=== PATIENT | male | born 1935 | race Caucasian/White ===

== ENCOUNTER 2017-05-06 01:17 | Emergency (ER) | payer MEDICARE, BC ==
[~2017-05-06] VITALS: Ht 170.2 cm; Wt 67.2 kg
[~2017-05-06 01:17] MED LIST: ANTIVERT25 MG PO; ARTHRITIS PAIN650 MG PO; ASPIRIN LOW DOS81 M1 PO; ASPIRIN LOW81 M1 OR; BACTRIM DS1 TAB OR; BACTRIM DS1 TAB PO; BENADRYL A12.5 MG/1 PO; BENADRYL25 M1 OR; BENTYL10 MG PO; CIPRO250 MG PO; COMPAZINE10 MG OR; CYCLOBENZAPR10 MG PO; DIAZEPAM5 M1 PO; DIAZEPAM5 MG OR; DICLOFENAC75 MG OR; DITROPAN OR; EMETROL PO; FENOFIBRATE48 MG PO; FENTANYL50 MCG/HR TD; FLEXERIL OR; FLEXERIL PO; FLEXERIL5 MG PO; FLOMAX0.4 M1 PO; FLONASE NASAL50 MCG; GABAPENTIN100 MG PO; HYDROCODONE/ACE1 TAB PO; LEVAQUIN500 MG PO; LEVOTHYROXIN50 MC1 OR; LEVOTHYROXIN50 MCG PO; LEXAPRO10 MG PO; LIDOCAINE HCL VIS2 % PO; LIPITOR40 MG PO; LORAZEPAM0.5 MG PO; LORTAB 7.5 PO; LORTAB 7.57.5 MG PO; MAALOX PO; MECLIZINE25 MG PO; METOPROL TAR25 MG OR; METOPROL TAR25 MG PO; MULTIVITAMIN OR; NAPROSYN375 MG PO; NAPROXEN DR375 MG PO; NAPROXEN375 MG PO; NUCYNTA ER50 MG PO; OXYCO/APAP1 TA2 OR; OXYCOD-APAP1 TA1 PO; OXYCOD/APAP1 TA3 PO; OXYCOD/APAP1 TA4 PO; PERCOCET1 TA4 PO; PLAVIX75 MG; PLAVIX75 MG PO; PRAVASTATIN SOD80 MG PO; PRAVASTATIN40 MG OR; PRAVASTATIN80 MG PO; PREDNISOLON2 XX; PREDNISONE5 MG; PREDNISONE5 MG OR; PREDNISONE5 MG PO; PROAIR HFA IN; PROCHLORPER10 MG PO; RANITIDINE150 M1 PO; RANITIDINE150 MG PO; ROBITUSSIN AC10 ML PO; SYMBICORT 80-4.5MCG IN; TAMSULOSIN0.4 MG PO; TERAZOSIN2 MG PO; TRAMADOL HCL50 MG PO; TRICOR48 MG PO; TUMS ULTRA1000 MG PO; TYLENOL 8 HR650 MG OR; TYLENOL325 MG PO; TYLOX OR; ULTRAM50 M1 PO; VALIUM5 MG PO; VENTOLIN HFA IN; VESICARE5 MG OR; VITAMIN B OR; ZANTAC 150 PO; ZOFRAN ODT4 MG SL; ZPAK PO
[2017-05-06] MEDS ORDERED: ULTRAM50 M1 PO (02:58)
[2017-05-06 03:22] VITALS: BP 138/86
== END 2017-05-06 03:21 | disposition home or self-care (01) ==
LOC: ED 01:17
DX: M70.31 Other bursitis of elbow, right elbow (principal); M25.521 Pain in right elbow

== ENCOUNTER 2017-07-01 02:00 | Observation (INO) | payer MEDICARE, BC ==
[~2017-07-01] VITALS: Ht 170.2 cm; Wt 67.2 kg
--- NOTE | 2017-07-01 02:00 | NUR ---
PT. AMBULATORY WITH STEADY GAIT TO TREATMENT ROOM.
--- NOTE | 2017-07-01 02:10 | NUR ---
DR. WHITE AT BEDSIDE TO ASSESS PT.
[2017-07-01] MEDS ORDERED: SYNTHROID25 MCG PO (02:28)
[2017-07-01] MEDS ORDERED: PREDNISONE10 MG PO (02:28)
[2017-07-01] MEDS ORDERED: ZANTAC150 M1 PO (02:29)
[2017-07-01] MEDS ORDERED: DONEPEZIL5 MG PO (02:29)
[2017-07-01] MEDS ORDERED: OXYCODONE/ACETA1 TA4 PO (02:30)
--- NOTE | 2017-07-01 02:35 | NUR ---
W/P/D SKIN PT DENIES SOB,NO NAUSEA NO SWEATS.SR NO ECTOPY S1S2 CLEAR BILAT BREATH SOUNDS.ABD SOFT NON TENDER.
[2017-07-01 02:44] LABS: HEMATOCRIT 37.9 % (39.0-50.0); HEMOGLOBIN 12.2 g/dl (14.0-18.0); IMMATURE GRANULOCYTES 0.3 % (0.0-1.0); MEAN CELL VOLUME 92.4 fL CALC (80.0-100.0); MEAN CORPUSCULAR HGB 29.8 pG CALC (26.0-32.0); MEAN CORPUSCULAR HGB CONC 32.2 g/L CALC (32.0-36.0); NEUT# 4.51 thou/uL (1.82-7.42); RED BLOOD COUNT 4.1 mill/uL (4.70-6.10); RED CELL DISTRI WIDTH 12.9 % (11.5-15.5)
[2017-07-01 02:54] LABS: ALKALINE PHOSPHATASE 60 u/l (38-126); ANION GAP 13 (6-22 (CALC)); BILIRUBIN, TOTAL 0.3 mg/dL (0.0-1.4); BUN 20 mg/dL (8-23); BUN/CREATININE RATIO 19 (12-20 (CALC)); CALCIUM 9.4 mg/dL (8.4-10.2); CARBON DIOXIDE 26 mmol/l (22-30); CHLORIDE 105 mmol/l (95-108); CREATININE 1.1 mg/dL (0.7-1.3); GFR > 60 ML/MIN (>=60 (CALC)); GFR FOR AFR.AMER. > 60 ML/MIN (>=60 (CALC)); GLUCOSE 113 mg/dL (82-115); LIPASE 102 u/l (23-300); POTASSIUM 4.2 mmol/l (3.5-5.1); SGOT/AST 25 u/l (19-48); SGPT/ALT 34 u/l (11-66); SODIUM 139 mmol/l (137-146); TOTAL PROTEIN 6.3 g/dL (6.3-8.2)
--- NOTE | 2017-07-01 02:54 | NUR ---
MEDICATED FOR NAUSEA
[2017-07-01 03:00] LABS: ACT PARTIAL THROMBO TIME 28.8 SECONDS (20.0-32.5); INTERNATIONAL NORMALIZED RATIO 0.9 RATIO (0.7-1.3); PROTHROMBIN TIME 10.1 SECONDS (9.0-12.5)
[2017-07-01 03:05] LABS: MYOGLOBIN 49 ng/mL (0 - 121)
--- NOTE | 2017-07-01 03:27 | NUR ---
PT STANDS TO VOID DENIES PAIN W/P/D SKIN SR WITHOUT ECTOPY
[2017-07-01 03:37] LABS: URINE BILIRUBIN - DIPSTICK NEGATIVE (NEGATIVE); URINE BLOOD DIPSTICK NEGATIVE (NEGATIVE); URINE COLOR YELLOW; URINE GLUCOSE - DIPSTICK NEGATIVE (NEGATIVE); URINE KETONE NEGATIVE (NEGATIVE); URINE LEUK ESTERASE NEGATIVE (NEGATIVE); URINE NITRITE - DIPSTICK NEGATIVE (Negative); URINE PH 6.5 (4.5-8.0); URINE PROTEIN - DIPSTICK NEGATIVE (NEG-TRACE); URINE UROBILINOGEN - DIPSTICK 0.2 E.U./dL (0.2)
[2017-07-01 03:46] LABS: URINE CLARITY CLEAR
--- NOTE | 2017-07-01 03:56 | NUR ---
DR Jack DISCUSSED POC WITH PT WHO ACCEPTS ADMISSION
--- NOTE | 2017-07-01 04:48 | NUR ---
PHONE REPORT TO ROSA ESTES ON MS2
[2017-07-01 04:50] VITALS: BP 164/88
--- NOTE | 2017-07-01 04:50 | NUR ---
FROM ER TO MED/SURG ROOM 271, VIA STRETCHER AND HELIX COIL WINDER, ON 2LPM VIA NC, A/O X3, APPEARS FORGETFULL, (HX OF DEMENTIA), ABLE TO AMBULATE TO STANDING SCALE THEN TO BED, UNSTEADY GAIT NOTED, DENIES ANY CHEST PAIN AT THIS TIME, OR SOB, TELE IN PLACE, JOHN HOSE IN PLACE, STATES LIVES AT ALONE AT HOME, STATES SON DROVE HIM TO EMERGENCY ROOM, REPORTS THAT STILL DRIVES, EXPLAINED CALL BENNETT SYSTEM, VOICES UNDERSTANDING, SAFETY MEASURES IN PLACE, BST, URINAL, AND FRESH WATER WITHIN REACH WELL CALL BENNETT, PT DEMOSTRATED BACK HOW TO USE CALL BENNETT, WILL MONITOR CLOSELY.
--- NOTE | 2017-07-01 05:00 | NUR ---
PT. UP TO MED/SURG AT THIS TIME.
[2017-07-01 06:30] VITALS: BP 145/82
--- NOTE | 2017-07-01 07:16 | NUR ---
NOTIFIED DR. IVY OF NO ORDERS IN PLACE. PT DENIES CHEST PAIN OR SOB, REPORT PROVIDED TO MEERA SOLIZ.
--- NOTE | 2017-07-01 07:24 | NUR ---
SHIFT CHANGE REPORT FROM SAMIA, PT AWAKE ALERT AND ORIENTED X 2, PLEASANTLY CONVERSANT, DENIES PAIN AT THIS TIME, TELE MONITOR IN PLACE, CALL BENNETT IN REACH.
[2017-07-01 07:33] VITALS: BP 145/79
--- NOTE | 2017-07-01 09:37 | NUR ---
ON ROUNDING, PT FOUND WITH IV CATHETER DISLODGED, STATED HE TOOK IT OFF BY HIMSELF AND TOOK OFF HIS MONITOR, GOT DRESSED AND WAITING FOR FAMILY TO TAKE HIM HOME. REORIENTED AND REDIRECTED, WILL CONTINUE TO MONITOR.
[2017-07-01] MEDS ORDERED: NITROGLYCER0.4 MG SL (10:25)
--- NOTE | 2017-07-01 10:47 | NUR ---
Discharge instructions given. Patient verbalizes understanding of same. Discharged in good condition via Ambulatory to Home with family. All belongings sent with pt.
== END 2017-07-01 10:46 | disposition home or self-care (01) ==
LOC: ED 02:00 → ED-I 03:56 → ED 04:11 → MS2 04:12
PROVIDERS: Emergency Medicine; ADMIT Internal Medicine; ATTEND Internal Medicine
DX: R07.9 Chest pain, unspecified (principal); I10 Essential (primary) hypertension; J44.9 Chronic obstructive pulmonary disease, unspecified; G89.4 Chronic pain syndrome; Z79.891 Long term (current) use of opiate analgesic

== ENCOUNTER 2017-09-05 05:53 | Emergency (ER) | payer MEDICARE, BC ==
[~2017-09-05] VITALS: Ht 170.2 cm; Wt 69.2 kg
[~2017-09-05 05:53] MED LIST changes: +DONEPEZIL5 MG PO; +NITROGLYCER0.4 MG SL; +OXYCODONE/ACETA1 TA4 PO; +PREDNISONE10 MG PO; +SYNTHROID25 MCG PO; +ZANTAC150 M1 PO
[2017-09-05 06:39] LABS: HEMATOCRIT 40.3 % (39.0-50.0); IMMATURE GRANULOCYTES 0.2 % (0.0-1.0); MEAN CORPUSCULAR HGB 29.7 pG CALC (26.0-32.0); MEAN CORPUSCULAR HGB CONC 32.3 g/L CALC (32.0-36.0); NEUT# 3.5 thou/uL (1.82-7.42); RED BLOOD COUNT 4.38 mill/uL (4.70-6.10); RED CELL DISTRI WIDTH 13.1 % (11.5-15.5)
[2017-09-05 06:56] LABS: ALKALINE PHOSPHATASE 60 u/l (38-126); ANION GAP 14 (6-22 (CALC)); BILIRUBIN, TOTAL 0.5 mg/dL (0.0-1.4); BUN 19 mg/dL (8-23); BUN/CREATININE RATIO 16 (12-20 (CALC)); CARBON DIOXIDE 29 mmol/l (22-30); CHLORIDE 103 mmol/l (95-108); CREATININE 1.2 mg/dL (0.7-1.3); GFR 58 ML/MIN (>=60 (CALC)); GFR FOR AFR.AMER. > 60 ML/MIN (>=60 (CALC)); SGOT/AST 24 u/l (19-48); SGPT/ALT 23 u/l (11-66); SODIUM 142 mmol/l (137-146); TOTAL PROTEIN 6.2 g/dL (6.3-8.2)
[2017-09-05 07:01] LABS: MYOGLOBIN 49 ng/mL (0 - 121)
[2017-09-05] MEDS ORDERED: LISINOPRIL10 MG PO (07:45)
[2017-09-05 07:47] VITALS: BP 148/81
== END 2017-09-05 08:00 | disposition home or self-care (01) ==
LOC: ED 05:53
PROVIDERS: Emergency Medicine
DX: I10 Essential (primary) hypertension (principal); J44.9 Chronic obstructive pulmonary disease, unspecified; I25.10 Atherosclerotic heart disease of native coronary artery without angina pectoris; R51 Headache

== ENCOUNTER 2017-09-21 11:52 | Emergency (ER) | payer MEDICARE, BC ==
[~2017-09-21] VITALS: Ht 170.2 cm; Wt 65.8 kg
[~2017-09-21 11:52] MED LIST changes: +LISINOPRIL10 MG PO
[2017-09-21 12:37] LABS: HEMATOCRIT 41.5 % (39.0-50.0); HEMOGLOBIN 13.3 g/dl (14.0-18.0); IMMATURE GRANULOCYTES 0.2 % (0.0-1.0); MEAN CORPUSCULAR HGB 29.5 pG CALC (26.0-32.0); NEUT# 6.73 thou/uL (1.82-7.42); RED BLOOD COUNT 4.51 mill/uL (4.70-6.10); RED CELL DISTRI WIDTH 12.9 % (11.5-15.5)
[2017-09-21 12:37] LABS: URINE BILIRUBIN - DIPSTICK NEGATIVE (NEGATIVE); URINE BLOOD DIPSTICK NEGATIVE (NEGATIVE); URINE COLOR YELLOW; URINE GLUCOSE - DIPSTICK NEGATIVE (NEGATIVE); URINE KETONE NEGATIVE (NEGATIVE); URINE LEUK ESTERASE NEGATIVE (NEGATIVE); URINE NITRITE - DIPSTICK NEGATIVE (Negative); URINE PROTEIN - DIPSTICK NEGATIVE (NEG-TRACE); URINE UROBILINOGEN - DIPSTICK 0.2 E.U./dL (0.2)
[2017-09-21 12:49] LABS: URINE CLARITY CLEAR
[2017-09-21 13:02] LABS: ALBUMIN 4.1 g/dL (3.2-5.0); ALKALINE PHOSPHATASE 56 u/l (38-126); ANION GAP 14 (6-22 (CALC)); BILIRUBIN, TOTAL 0.5 mg/dL (0.0-1.4); BUN 23 mg/dL (8-23); BUN/CREATININE RATIO 17 (12-20 (CALC)); CARBON DIOXIDE 26 mmol/l (22-30); CHLORIDE 103 mmol/l (95-108); CREATININE 1.3 mg/dL (0.7-1.3); GFR 53 ML/MIN (>=60 (CALC)); GFR FOR AFR.AMER. > 60 ML/MIN (>=60 (CALC)); LIPASE 97 u/l (23-300); POTASSIUM 4.1 mmol/l (3.5-5.1); SGOT/AST 19 u/l (19-48); SGPT/ALT 21 u/l (11-66); SODIUM 139 mmol/l (137-146); TOTAL PROTEIN 6.4 g/dL (6.3-8.2)
[2017-09-21] MEDS ORDERED: RANITIDINE 150150 MG PO (15:45)
[2017-09-21 15:52] VITALS: BP 128/61
== END 2017-09-21 15:54 | disposition home or self-care (01) ==
LOC: ED 11:52
PROVIDERS: Family Medicine
DX: K29.70 Gastritis, unspecified, without bleeding (principal); K59.00 Constipation, unspecified; R11.0 Nausea; I25.10 Atherosclerotic heart disease of native coronary artery without angina pectoris; Z95.5 Presence of coronary angioplasty implant and graft; I10 Essential (primary) hypertension
CPT/HCPCS: Q9967

== ENCOUNTER 2017-09-23 10:04 | Emergency (ER) | payer MEDICARE, BC ==
[~2017-09-23] VITALS: Ht 170.2 cm; Wt 84.0 kg
[~2017-09-23 10:04] MED LIST changes: +RANITIDINE 150150 MG PO
[2017-09-23 11:09] VITALS: BP 172/80
== END 2017-09-23 11:18 | disposition home or self-care (01) ==
LOC: ED 10:04
DX: K59.00 Constipation, unspecified (principal); R10.13 Epigastric pain; R11.0 Nausea

== ENCOUNTER 2018-04-13 02:44 | Emergency (ER) | payer MEDICARE, BC ==
[~2018-04-13] VITALS: Ht 170.2 cm; Wt 65.4 kg
[2018-04-13 03:55] VITALS: BP 165/96
== END 2018-04-13 03:55 | disposition home or self-care (01) ==
LOC: ED 02:44
DX: S43.402A Unspecified sprain of left shoulder joint, initial encounter (principal); I10 Essential (primary) hypertension; J44.9 Chronic obstructive pulmonary disease, unspecified; I25.10 Atherosclerotic heart disease of native coronary artery without angina pectoris; W01.0XXA Fall on same level from slipping, tripping and stumbling without subsequent striking against object, initial encounter; Y92.009 Unspecified place in unspecified non-institutional (private) residence as the place of occurrence of the external cause

== ENCOUNTER 2018-04-30 15:48 | Observation (INO) | payer MEDICARE, BC ==
[~2018-04-30] VITALS: Ht 170.2 cm; Wt 70.4 kg
--- NOTE | 2018-04-30 15:50 | NUR ---
PATIENT TO ROOM VIA WHEELCHAIR.
--- NOTE | 2018-04-30 16:15 | NUR ---
PATIENT REPORTS INTERMITTENT CHEST PAIN PAIN X1 MONTH INCREASING TODAY. STATES "I GET BURSTS OF PAIN." TO LEFT LOWER CHEST, DENIES ANY CURRENT CHEST PAIN, DENIES ANY SOB OR VOMITING. LUNG SOUNDS CLEAR, BOWEL SOUNDS ACTIVE, SOFT ABD. UPDATED ON PLAN OF CARE AND WAIT TIME. VERBAL UNDERSTANDING. CALL LIGHT GIVEN AND INFORMED TO CALL FOR ASSISTANCE.
[2018-04-30 16:26] LABS: HEMATOCRIT 38.4 % (39.0-50.0); HEMOGLOBIN 12.1 g/dl (14.0-18.0); IMMATURE GRANULOCYTES 0.3 % (0.0-5.0); MEAN CELL VOLUME 94.8 fL CALC (80.0-100.0); MEAN CORPUSCULAR HGB 29.9 pG CALC (26.0-32.0); MEAN CORPUSCULAR HGB CONC 31.5 g/L CALC (32.0-36.0); NEUT# 8.37 thou/uL (1.82-7.42); RED BLOOD COUNT 4.05 mill/uL (4.70-6.10); RED CELL DISTRI WIDTH 13.7 % (11.5-15.5)
[2018-04-30 16:35] LABS: ANION GAP 15 (6-22 (CALC)); BUN 21 mg/dL (8-23); BUN/CREATININE RATIO 17 (12-20 (CALC)); CARBON DIOXIDE 25 mmol/l (22-30); CHLORIDE 106 mmol/l (95-108); CREATININE 1.2 mg/dL (0.7-1.3); GFR 58 ML/MIN (>=60 (CALC)); GFR FOR AFR.AMER. > 60 ML/MIN (>=60 (CALC)); POTASSIUM 4.4 mmol/l (3.5-5.1); SODIUM 141 mmol/l (137-146)
--- NOTE | 2018-04-30 17:05 | NUR ---
PATIENT DENIES ANY CHEST PAIN SINCE ARRIVAL. UPDATED ON PLAN OF CARE AND ADMIT. VERBAL UNDERSTANDING. WILL CONTINUE TO MONITOR.
--- NOTE | 2018-04-30 17:25 | NUR ---
REPORT CALLED TO MEERA SOLIZ.
--- NOTE | 2018-04-30 17:30 | NUR ---
PATIENT TRANSPORTED TO [facility] VIA WHEELCHAIR WITH TELE IN PLACE. AT BEDSIDE. MARTÍNEZ INFORMED OF PATIENT ARRIVAL TO UNIT CARE RELINQUISHED.
--- NOTE | 2018-04-30 17:42 | NUR ---
REPORT RECEIVED FROM PATTI IN ED, PT ARRIVED ON UNIT VIA W/C @ 1647, ALERT AND ORIENTED X 4, ORIENTED TO ROOM AND CALL BENNETT. DENIED PAIN AT THIS TIME BUT STATED HAS BEEN HAVING INTERMITTENT SHARP PAINS TO LEFT BREAST WHICH STAYED IN ONE PLACE, LAST FOR FEW SECONDS-FEW MINS THEN DISAPPEAR. DR GARCIA ROUNDING AT THIS TIME AND EVALUATING PT, WILL CONTINUE TO MONITOR, CALL BENNETT IN REACH.
[2018-04-30 17:46] VITALS: BP 126/73
[2018-04-30 18:57] VITALS: BP 136/76
--- NOTE | 2018-04-30 19:00 | NUR ---
PT SITTING UP IN BED WATCHING TV. PT IS ALERT AND ORIENTED X3. SHIFT ASSESSMENT COMPLETED AT THIS TIME. IV PATENT X1. PT STATES THAT HE IS STILL HAVING SOME PAIN BUT HAS NORMALLY HAD PAIN MEDS BY THIS TIME. PREVIOUS SHIFT NURSE HAS A MESSAGE OUT TO MD. AWAITING MD ORDERS. PLAN OF CARE REVIEWED WITH PT. PT IS ON A BED ALARM FOR PT SAFETY. ASSISTED PT TO BATHROOM AND BACK TO BED. PT HAS A STEADY GAIT. CALL LIGHT IN REACH. WILL CONTINUE TO MONITOR.
--- NOTE | 2018-04-30 19:45 | NUR ---
IV SITE TO RAC DC'D DUE TO PT BENDING ARM. #22 STARTED TO RFA X1 ATTEMPT PT TOLERATED WELL.
--- NOTE | 2018-04-30 23:32 | NUR ---
PT UP AMBULAITNG IN ROOM. PT REMOVED BED ALARM FROM GOWN. INSTRUCTED PT TO CALL FOR ASSISTANCE. PT REMAINS ALERT AND ORIENTED X3. WILL CONTINUE TO MONITOR
[2018-05-01 00:06] VITALS: BP 147/81
--- NOTE | 2018-05-01 02:17 | NUR ---
IV PUMP BEEPING THAT INFUSION COMPLETE. PT REMOVED IV FROM RFA AND HUNG IV AND TUBING ON POLE. PT REFUSING AT THIS TIME FOR A NEW IV STATING "I AM LEAVING IN A FEW HOURS". CATH TIP INTACT. WILL CONTINUE TO MONITOR.
[2018-05-01 03:11] VITALS: BP 137/79
--- NOTE | 2018-05-01 03:32 | NUR ---
PT CONTINUES TO REFUSE IV. QUESTIONED PT ON PLACING NEW LEADS FOR HEART MONITOR. PT DECLINED. REMOVED TELE BOX AND NOTIFIED ER. CALL LIGHT IN REACH. WILL CONTINUE TO MONITOR.
--- NOTE | 2018-05-01 04:00 | NUR ---
PT AMBULATING IN HALLWAYS. PHONED SON. SON TALKED TO PATIENT AND ENCOURAGED PT TO STAY. PT STATED TO SON THAT HE WOULD STAY. AFTER HANGING UP PHONE WITH SON. PT LEFT VIA [facility] IN [address]. SECURITY MYSELF AND NURSING CANE FLUME FEEDING MACHINE OPERATOR FOLLOWED PATIENT TO PARKING LOT. PT GOT IN CAR AND DROVE OFF. [place] NURSING CANE FLUME FEEDING MACHINE OPERATOR NOTIFIED POLICE. MYSELF NOTIFIED SON NAHOMI. SON WENT TO PT HOME AND POLICE NOTIFIED REN[place] NURSIGN CANE FLUME FEEDING MACHINE OPERATOR THAT PT HAD ARRIVED HOME SAFELY. AMA PAPERWORK COMPLETED. DR VICK NOTIFIED IN ER COURT BAILIFF HOSPITALIST. DR GARCIA NOTIFIED WELL.
== END 2018-05-01 04:00 | disposition left against medical advice (07) ==
LOC: ED 15:48 → ED-I 16:51 → ED 17:03 → MS2 17:04
PROVIDERS: Family Medicine; ADMIT Internal Medicine; ATTEND Internal Medicine
DX: R07.89 Other chest pain (principal); I10 Essential (primary) hypertension; J44.9 Chronic obstructive pulmonary disease, unspecified; I25.10 Atherosclerotic heart disease of native coronary artery without angina pectoris; M19.90 Unspecified osteoarthritis, unspecified site; E03.9 Hypothyroidism, unspecified; F03.90 Unspecified dementia, unspecified severity, without behavioral disturbance, psychotic disturbance, mood disturbance, and anxiety
CPT/HCPCS: G0378

== ENCOUNTER 2018-06-10 08:55 | Emergency (ER) | payer MEDICARE, BC | END 2018-06-10 09:05 | disposition left against medical advice (07) | LOC: ED 08:55 → LWOBS 09:04 | DX: Z91.19 Patient's noncompliance with other medical treatment and regimen (principal) ==

== ENCOUNTER 2019-11-20 | Inpatient (IN) | payer MEDICARE, BC ==
[2019-11-20] VITALS (7 sets, daily range): BP systolic 105–147; BP diastolic 59–74
--- NOTE | 2019-11-20 11:40 | NUR ---
PATIENT TO ROOM VIA EMS AND PHYSICIAN AT BEDSIDE FOR EVAL
--- NOTE | 2019-11-20 12:00 | NUR ---
PT MEDICATED PER MAR FOR TEMP; MONITORING DEVICES IN PLACE; VSS; WILL CONTINUE TO MONITOR
[2019-11-20 12:34] LABS: HEMOGLOBIN 11.3 g/dl (14.0-18.0); IMMATURE GRANULOCYTES 0.4 % (0.0-5.0); MEAN CELL VOLUME 90.8 fL CALC (80.0-100.0); MEAN CORPUSCULAR HGB 29.6 pG CALC (26.0-32.0); MEAN CORPUSCULAR HGB CONC 32.6 g/dL CAL (32.0-36.0); NEUT# 8.99 thou/uL (1.82-7.42); RED BLOOD COUNT 3.82 mill/uL (4.70-6.10); RED CELL DISTRI WIDTH 12.6 % (11.5-15.5)
[2019-11-20 12:39] LABS: HEMATOCRIT 34.7 % (39.0-50.0)
[2019-11-20 12:50] LABS: ACT PARTIAL THROMBO TIME 23.6 SECONDS (20.0-32.5); PROTHROMBIN TIME 10.6 SECONDS (9.0-12.5)
[2019-11-20 12:53] LABS: ALBUMIN 3.4 g/dL (3.2-5.0); ALKALINE PHOSPHATASE 56 u/l (38-126); AMYLASE 33 u/l (30-110); ANION GAP 8 (6-22 (CALC)); BILIRUBIN, TOTAL 1.1 mg/dL (0.0-1.4); BUN 16 mg/dL (8-23); BUN/CREATININE RATIO 16 (12-20 (CALC)); CARBON DIOXIDE 27 mmol/l (22-30); CHLORIDE 105 mmol/l (95-108); ETHYL ALCOHOL 0 mg/dl (0-30); GFR > 60 ML/MIN (>=60 (CALC)); GFR FOR AFR.AMER. > 60 ML/MIN (>=60 (CALC)); LIPASE 26 u/l (23-300); MAGNESIUM 1.8 mg/dL (1.6-2.3); POTASSIUM 3.8 mmol/l (3.5-5.1); SGOT/AST 26 u/l (19-48); SODIUM 136 mmol/l (137-146)
[2019-11-20 12:57] LABS: C-REACTIVE PROTEIN 1.9 mg/dL (0-0.9)
--- NOTE | 2019-11-20 13:00 | NUR ---
PT TEMP RECHECK 101.0; MD NOTIFIED; MONITORING DEVICES IN PLACE; PT ADVISED OF CONTINUED WAIT TIME; WILL CONTINUE TO MONITOR
[2019-11-20] MEDS ORDERED: NAMENDA10 M1 PO (13:04)
[2019-11-20] MEDS ORDERED: TRAZODONE HCL50 MG PO (13:05)
[2019-11-20] MEDS ORDERED: PAIN RELIEF EX500 M1 PO (13:06)
[2019-11-20 13:22] LABS: TSH, 3RD GENERATION 0.97 uIU/mL (0.47 - 4.68)
--- NOTE | 2019-11-20 14:00 | NUR ---
PT RESTING ON STRETCHER; NO S/S OF DISTRESS NOTED; MONITORING DEVICES IN PLACE; CALL LIGHT WITHIN REACH; WILL CONTINUE TO MONITOR
--- NOTE | 2019-11-20 14:52 | NUR ---
SBAR PRINTED TO FLOOR
[2019-11-20 14:59] LABS: URINE BILIRUBIN - DIPSTICK NEGATIVE (NEGATIVE); URINE BLOOD DIPSTICK NEGATIVE (NEGATIVE); URINE COLOR YELLOW; URINE GLUCOSE - DIPSTICK NEGATIVE (NEGATIVE); URINE KETONE NEGATIVE (NEGATIVE); URINE LEUK ESTERASE NEGATIVE (NEGATIVE); URINE NITRITE - DIPSTICK NEGATIVE (Negative); URINE PH 7.5 (4.5-8.0); URINE PROTEIN - DIPSTICK NEGATIVE (NEG-TRACE); URINE SPECIFIC GRAVITY 1.015; URINE UROBILINOGEN - DIPSTICK 0.2 E.U./dL (0.2)
[2019-11-20 15:42] LABS: BARBITURATES NEGATIVE (NEGATIVE); COCAINE NEGATIVE (NEGATIVE); METHADONE NEGATIVE (NEGATIVE); OXCYCODONE POSITIVE (NEGATIVE); TETRAHYDROCANNABIONOL NEGATIVE (NEGATIVE); TRICYLIC ANTIDEPRESSANTS NEGATIVE (NEGATIVE)
--- NOTE | 2019-11-20 15:50 | NUR ---
Admission Note Report Given to: MEERA RIVAS Transported by: Wheelchair X Stretcher Transported with: X Nurse Transporter X Patent IV O2 X Molder Foam Rubber Location: X ICU MS2
--- NOTE | 2019-11-20 15:52 | NUR ---
PT TO ICU BED 8 VIA STRETCHER ACCOMPANIED BY ER NURSE. PT ON CONTACT/AIR PRECAUTIONS. PT IS ALERT AND ORIENTED X3. ADMISSION ASSESSMENT COMPLETED AT THIS TIME. IV PATENT X2. ORIENTED PT TO ROOM AND UNIT. CALL LIGHT IN REACH. WILL CONTINUE TO MONITOR.
--- NOTE | 2019-11-20 16:20 | NUR ---
PT ASSISTED TO STAND AT BEDSIDE TO VOID. THEN ASSISTED BACK TO BED. CALL LIGHT IN REACH. WILL CONTINUE TO MONITOR.
--- NOTE | 2019-11-20 17:30 | NUR ---
pt standing up at bedside at this time stating "i need to pee" this nurse into room to assist with urinal. pt remains alert and oriented x3. pt states i thought on this unit you could get up when you wanted. encourage pt to use call light. pt verbalized understanding. troponin obtained at this time. then infectious disease consult completed with dr sexton via telehealth. pt set up with pm meal. bed alarm placed on for pt safety. call light in reach. will continue to monitor.
--- NOTE | 2019-11-20 17:59 | NUR ---
blanket provided per patient request temp recheck at this time 98.4
--- NOTE | 2019-11-20 18:14 | NUR ---
son jeremy phoned for update. was able to provide code. update provided. then transferred to [facility] and spoke with patient.
--- NOTE | 2019-11-20 18:45 | NUR ---
RECEIVED REPORT FROM EVELYN ESTES.
--- NOTE | 2019-11-20 19:00 | NUR ---
PT SLEEPING AT THIS TIME. VS PER MONITOR.
--- NOTE | 2019-11-20 20:00 | NUR ---
PT AWAKE AND ALERT, SITS ON SIDE OF BED TO URINATE INTO URINAL. NO C/O SOB OR PAIN. NO NEEDS AT THIS TIME. CALL BENNETT IN REACH.
--- NOTE | 2019-11-20 21:10 | NUR ---
PT C/O HEADACHE. MEDICATED WITH TYLENOL PER SEP.
--- NOTE | 2019-11-20 22:01 | NUR ---
PT WITH EYES CLOSED, NO DISTRESS NOTED. CALL BENNETT IN REACH.
[2019-11-21] VITALS (12 sets, daily range): BP systolic 115–143; BP diastolic 44–72
--- NOTE | 2019-11-21 | NUR ---
PT SITTING ON SIDE OF BED USING URINAL. PT RELATED SLIGHT HEADACHE. NO C/O OF SOB. PT RETURNED TO LYING POSITION. CALL BENNETT IN REACH.
--- NOTE | 2019-11-21 02:00 | NUR ---
PT WITH EYES CLOSED, NO DISTRESS NOTED. VS PER MONITOR CALL BENNETT IN REACH.
--- NOTE | 2019-11-21 04:00 | NUR ---
TEMP 99.7 PT STARTING TO RIGOR, MEDICATED PER MAR. WILL CONTINUE TO MONITOR TEMP. CALL BENNETT IN REACH.
--- NOTE | 2019-11-21 05:35 | NUR ---
LABS DRAWN, PT C/O SLIGHT NAUSEA. CALL BENNETT IN REACH. T 99.3, REMOVED BLANKETS.
[2019-11-21 05:47] LABS: HEMATOCRIT 33.7 % (39.0-50.0); HEMOGLOBIN 10.8 g/dl (14.0-18.0); IMMATURE GRANULOCYTES 0.2 % (0.0-5.0); MEAN CELL VOLUME 91.3 fL CALC (80.0-100.0); MEAN CORPUSCULAR HGB 29.3 pG CALC (26.0-32.0); NEUT# 9.49 thou/uL (1.82-7.42); RED BLOOD COUNT 3.69 mill/uL (4.70-6.10)
[2019-11-21 05:57] LABS: ALKALINE PHOSPHATASE 48 u/l (38-126); BILIRUBIN, TOTAL 0.8 mg/dL (0.0-1.4); BUN 14 mg/dL (8-23); BUN/CREATININE RATIO 16 (12-20 (CALC)); CHLORIDE 112 mmol/l (95-108); CREATININE 0.8 mg/dL (0.7-1.3); GFR > 60 ML/MIN (>=60 (CALC)); GFR FOR AFR.AMER. > 60 ML/MIN (>=60 (CALC)); SGOT/AST 25 u/l (19-48); SODIUM 136 mmol/l (137-146); TOTAL PROTEIN 5.1 g/dL (6.3-8.2)
--- NOTE | 2019-11-21 06:00 | NUR ---
PT WITH EYES CLOSED, NO RESP DISTRESS NOTED. SA02 96% NO NEEDS AT THIS TIME. CALL BENNETT IN REACH.
[2019-11-21 06:09] LABS: ALBUMIN 2.7 g/dL (3.2-5.0); ANION GAP 8 (6-22 (CALC)); CARBON DIOXIDE 20 mmol/l (22-30)
--- NOTE | 2019-11-21 06:45 | NUR ---
REPORT TO LOTUS ESTES.
--- NOTE | 2019-11-21 07:00 | NUR ---
REPORT RECEIVED FROM OUTGOING NURSE, PT RESTING IN BED, VSS. SEE PROCESS INTERVENTION FOR ASSESSMENT.
--- NOTE | 2019-11-21 10:00 | NUR ---
PT ALERT AND ORIENTED IN BED RESTING AT THIS TIME. ALL VSS STABLE, WILL CONTINUE TO MONITOR.
--- NOTE | 2019-11-21 12:00 | NUR ---
PT RESTING IN BED, ALERT AND ORIENTED. ALL VSS AT THIS TIME, INTERMITTENT ABX INFUSIONS AT THIS TIME, AFEBRILE.
--- NOTE | 2019-11-21 14:00 | NUR ---
PT RESTING IN BED AT THIS TIME, ALERT AND ORIENTED. ALL VSS AT THIS TIME, WILL CONTINUE TO MONITOR.
--- NOTE | 2019-11-21 16:00 | NUR ---
PT RESTING IN BED, ALERT AND ORIENTED. INTERMITTENT ABX INFUSIONS, VSS AT THIS TIME. WILL CONTINUE TO MONITOR.
--- NOTE | 2019-11-21 18:00 | NUR ---
PT RESTLESS,BM AT THIS TIME. UP TO BATHROOM, BED LINENS CHANGED AND PT CLEANED UP. ALERT AND AGITATED/ANXIOUS. BATHROOM BREAK HELPED EASE PT ANXIETY
--- NOTE | 2019-11-21 19:15 | NUR ---
awake. oriented to name & place. nad. cyber forensics analyst shows sinus rhythm. #20 rfa ns infusing @ 100cchr. po fluids taken well. voids per urinal. fall & droplet precautions. bed alarm on.
--- NOTE | 2019-11-21 22:00 | NUR ---
awake. watching tv. no distress. dressmaker helper shows sinus rhythm 1st degree avb pacs pvcs hr 76.
[2019-11-22] VITALS: BP 136/76
--- NOTE | 2019-11-22 00:01 | NUR ---
bed alarm sounding. pt standing @ bedside. voided per urinal then back to bed. bed alarm reactivated.
[2019-11-22 01:00] VITALS: BP 135/65
[2019-11-22 01:58] VITALS: BP 139/67
--- NOTE | 2019-11-22 02:00 | NUR ---
bed alarm sounding. pt standing @ bedside. voided per urinal then back to bed. bed alarm reactivated.
[2019-11-22 03:00] VITALS: BP 134/69
--- NOTE | 2019-11-22 04:00 | NUR ---
eyes closed. no apparent distress. rn cardiac cath shows sinus rhythm 1st degree avb pacs pvcs hr 62.
--- NOTE | 2019-11-22 06:03 | NUR ---
blood drawn & sent to lab.
[2019-11-22 06:30] LABS: HEMATOCRIT 34.7 % (39.0-50.0); MEAN CELL VOLUME 92.3 fL CALC (80.0-100.0); MEAN CORPUSCULAR HGB 29.3 pG CALC (26.0-32.0); MEAN CORPUSCULAR HGB CONC 31.7 g/dL CAL (32.0-36.0); RED BLOOD COUNT 3.76 mill/uL (4.70-6.10); RED CELL DISTRI WIDTH 12.8 % (11.5-15.5)
[2019-11-22 06:51] LABS: ANION GAP 9 (6-22 (CALC)); BUN 12 mg/dL (8-23); BUN/CREATININE RATIO 13 (12-20 (CALC)); CARBON DIOXIDE 20 mmol/l (22-30); CHLORIDE 111 mmol/l (95-108); CREATININE 0.9 mg/dL (0.7-1.3); GFR > 60 ML/MIN (>=60 (CALC)); GFR FOR AFR.AMER. > 60 ML/MIN (>=60 (CALC)); POTASSIUM 3.5 mmol/l (3.5-5.1); SODIUM 136 mmol/l (137-146)
--- NOTE | 2019-11-22 07:33 | NUR ---
PT AMBULATING IN ROOM, WIRES FROM MONITOR ARE ON THE FLOOR, PT CONTINUES TO OPEN DOOR TO ROOM, DISCUSSED ISOLATION PRECAUTIONS ENCOURAGED PT TO REMAIN IN ROOM, PT IS CONFUSED. AMBULATES WITH STEADY GAIT, NO SIGNS OF DISTRESS NOTED, RESP EVEN AND UNLABORED. CONTINUE TO MONITOR.
--- NOTE | 2019-11-22 08:00 | NUR ---
PT SITTING IN RECLINER DRESSED IN CLOTHES FROM HOME, BREAKFAST BROUGHT IN TO PT, PT IS ALERT TO SELF BUT CONFUSED. PT KNOWS HE IS IN [facility] BUT DOES NOT KNOW WHERE HE IS. STATES HE ARRIVED VIA TRAIN. REORIENTED PT TO SURROUNDINGS AND DISCUSSED POC, PT PLEASANT VERBALIZED UNDERSTANDING. NO SIGNS OF DISTRESS NOTED. NOTED MONITOR WIRES WERE SOILED, CLEANED WIRES AND REPLACED ON PT, PT STATES HE CANT KEEP THEM ON LONG HE HAS TO GO TO THE STORE, INFORMED PT THAT HE WILL NEED TO WAIT FOR MD, PT AGAIN VERBALIZED UNDERSTANDING. VITALS OBTAINED, PT IS AFEBRILE, ASSESSMENT COMPLETED. CALL LIGHT IN REACH,CONTINUE TO MONITOR.
[2019-11-22 08:15] VITALS: BP 110/59
--- NOTE | 2019-11-22 08:43 | NUR ---
PT AGAIN REMOVED HEART MONITOR AND BP CUFF, PT AMBULATING IN ROOM, CONTINUE TO MONITOR.
--- NOTE | 2019-11-22 09:00 | NUR ---
PT SPEAKING TO SON ON PORTABLE PHONE, CONTINUE TO MONITOR.
--- NOTE | 2019-11-22 09:31 | NUR ---
PT IS AMBULATING IN ROOM REARRANGING FURNITURE, NO SIGNS OF DISTRESS NOTED, RESP EVEN AND UNLABORED. CONTINUE TO MONITOR.
--- NOTE | 2019-11-22 10:28 | NUR ---
RECEIVED CALL FROM [place] FROM LABORATORY AND COVID SWAB RESULTS ARE NEGATIVE.
--- NOTE | 2019-11-22 10:45 | NUR ---
Confirmed with patient's nurse JOANN Floyd 19 swab results results were called to floor by lab. Results placed in patient chart by Mariel.
--- NOTE | 2019-11-22 11:48 | NUR ---
LUNCH TRAY PROVIDED, SPEAKING TO DAUGHTER ON PORTABLE PHONE, PT ASKING ABOUT GETTING MOVED TO ANOTHER ROOM, INFORMED PT THAT SON IS TO PICK PT UP SINCE HE IS BEING DISCHARGED, PT VERBALIZED UNDERSTANDING. PT SITTING ON SIDE OF BED EATING LUNCH, NO SIGNS OF DISTRESS NOTED, RESP EVEN AND UNLABORED. CALL LIGHT IN REACH,CONTINUE TO MONITOR.
--- NOTE | 2019-11-22 12:45 | NUR ---
CALL MADE TO SON, PT TO BE DISCHARGE, DISCHARGE INSTRUCTIONS DISCUSSED WITH PT, AND WILL DISCUSS WITH DAUGHTER IN LAW WHEN SHE ARRIVES TO EYELET RIVETER PT. PT VERBALIZED UNDERSTANDING. MASK PROVIDED AND PT AMBULATED DOWNSTAIRS WITH RAILROAD CAR CLEANING SUPERVISOR.
--- NOTE | 2019-11-22 12:53 | NUR ---
Discharge instructions given. Patient verbalizes understanding of same. Discharged in stable condition via Ambulatory to Home with family. All belongings sent with pt.
--- NOTE | 2019-11-23 07:51 | NUR ---
RECD CALL FROM MICRO, BLOOD CULTURE GROWING CORYNIBACTERIUM, A CONTAMINANT. NO FOLLOWUP NEEDED.
[2020-03-08] MEDS ORDERED: ALLEGRA180 MG PO (07:18)
[2020-03-08] MEDS ORDERED: BREO ELLIPTA (07:19)
[2020-03-08] MEDS ORDERED: CYANOCOBAL1000 MCG/M (07:20)
[2020-03-08] MEDS ORDERED: PERCOCET 10/31 COMBO PO (07:21)
[2020-03-08] MEDS ORDERED: GABAPENTIN100 MG PO (07:21)
== END 2019-11-22 12:54 | disposition home or self-care (01) | DRG 864 ==
PROVIDERS: ADMIT Internal Medicine
DX: R50.9 Fever, unspecified (principal); I10 Essential (primary) hypertension; I25.10 Atherosclerotic heart disease of native coronary artery without angina pectoris; J44.9 Chronic obstructive pulmonary disease, unspecified; F03.90 Unspecified dementia, unspecified severity, without behavioral disturbance, psychotic disturbance, mood disturbance, and anxiety; E03.9 Hypothyroidism, unspecified; G89.4 Chronic pain syndrome; M35.3 Polymyalgia rheumatica; Z95.5 Presence of coronary angioplasty implant and graft; Z79.52 Long term (current) use of systemic steroids; Z20.828 Contact with and (suspected) exposure to other viral communicable diseases
CPT/HCPCS: Q3014; Q9967

== ENCOUNTER 2021-05-05 14:29 | Emergency (ER) | payer MEDICARE, BC ==
[~2021-05-05] VITALS: Ht 170.2 cm; Wt 75.0 kg
[~2021-05-05 14:29] MED LIST changes: +ALLEGRA180 MG PO; +BREO ELLIPTA; +CYANOCOBAL1000 MCG/M; +NAMENDA10 M1 PO; +PAIN RELIEF EX500 M1 PO; +PERCOCET 10/31 COMBO PO; +TRAZODONE HCL50 MG PO
[2021-05-05 14:36] VITALS: BP 130/70
[2021-05-05] MEDS ORDERED: AMOX/K CLAV875 M1 PO ×2 (15:38→15:47)
== END 2021-05-05 15:57 | disposition home or self-care (01) ==
LOC: ED 14:29
PROC: 0HQDXZZ Repair Right Lower Arm Skin, External Approach (ICD-10-PCS; principal; 2021-05-05)
DX: S51.811A Laceration without foreign body of right forearm, initial encounter (principal); X58.XXXA Exposure to other specified factors, initial encounter

== ENCOUNTER 2021-11-08 13:14 | Emergency (ER) | payer MEDICARE, BC ==
[~2021-11-08] VITALS: Ht 167.6 cm; Wt 54.5 kg
[~2021-11-08 13:14] MED LIST changes: +AMOX/K CLAV875 M1 PO
[2021-11-08 13:28] VITALS: BP 102/83
[2021-11-08] MEDS ORDERED: OMEPRAZOLE20 MG PO (13:32)
[2021-11-08] MEDS ORDERED: QUETIAPINE FUMA25 MG PO (13:32)
[2021-11-08 13:41] LABS: HEMATOCRIT 39.8 % (39.0-50.0); HEMOGLOBIN 12.4 g/dl (14.0-18.0); IMMATURE GRANULOCYTES 0.3 % (0.0-5.0); MEAN CELL VOLUME 97.3 fL CALC (80.0-100.0); MEAN CORPUSCULAR HGB 30.3 pG CALC (26.0-32.0); MEAN CORPUSCULAR HGB CONC 31.2 g/dL CAL (32.0-36.0); NEUT# 10.12 thou/uL (1.82-7.42); RED BLOOD COUNT 4.09 mill/uL (4.70-6.10); RED CELL DISTRI WIDTH 12.9 % (11.5-15.5)
[2021-11-08 14:06] LABS: ALBUMIN 3.5 g/dL (3.2-5.0); ANION GAP 15 (6-22 (CALC)); BUN 27 mg/dL (8-23); BUN/CREATININE RATIO 23 (12-20 (CALC)); CARBON DIOXIDE 22 mmol/l (22-30); CHLORIDE 107 mmol/l (95-108); CREATININE 1.2 mg/dL (0.7-1.3); GFR 57 ML/MIN (>=60 (CALC)); GFR FOR AFR.AMER. > 60 ML/MIN (>=60 (CALC)); POTASSIUM 3.8 mmol/l (3.5-5.1); SGOT/AST 28 u/l (19-48); SODIUM 140 mmol/l (137-146); TOTAL PROTEIN 6.2 g/dL (6.3-8.2)
[2021-11-08 14:07] LABS: ALKALINE PHOSPHATASE 76 u/l (38-126); BILIRUBIN, TOTAL 1.2 mg/dL (0.0-1.4)
== END 2021-11-08 16:49 | disposition home or self-care (01) ==
LOC: ED 13:14
PROVIDERS: Family Medicine
DX: R13.10 Dysphagia, unspecified (principal); E03.9 Hypothyroidism, unspecified; E78.5 Hyperlipidemia, unspecified

== ENCOUNTER 2021-12-01 09:30 | Day surgery (SDC) | payer MEDICARE, BC ==
[~2021-12-01] VITALS: Ht 167.6 cm; Wt 56.7 kg
[~2021-12-01 09:30] MED LIST changes: +ACETAMINOPHEN500 MG PO; +OMEPRAZOLE20 MG PO; +OXYCODO-APAP1 TA2 PO; +QUETIAPINE FUMA25 MG PO
[2021-12-01 15:09] VITALS: BP 133/93
== END 2021-12-01 14:15 | disposition home or self-care (01) ==
LOC: DI 09:30 → ENDO 09:30 → EDSTATUS 09:30 → ENDO 14:15
PROVIDERS: ATTEND Surgery
PROC: 0DC58ZZ Extirpation of Matter from Esophagus, Via Natural or Artificial Opening Endoscopic (ICD-10-PCS; principal; 2021-12-01)
PROC: 0D738ZZ Dilation of Lower Esophagus, Via Natural or Artificial Opening Endoscopic (ICD-10-PCS; 2021-12-01)
DX: K22.0 Achalasia of cardia (principal); T18.128A Food in esophagus causing other injury, initial encounter; G31.83 Neurocognitive disorder with Lewy bodies; F02.80 Dementia in other diseases classified elsewhere, unspecified severity, without behavioral disturbance, psychotic disturbance, mood disturbance, and anxiety; X58.XXXA Exposure to other specified factors, initial encounter; Z20.822 Contact with and (suspected) exposure to COVID-19

== ENCOUNTER 2023-04-09 09:08 | Emergency (ER) | payer MEDICARE, BC ==
[~2023-04-09] VITALS: Ht 167.6 cm; Wt 58.1 kg
[2023-04-09 11:43] VITALS: BP 97/60
[2023-04-09] MEDS ORDERED: BACTRIM DS1 TAB PO (11:53)
== END 2023-04-09 11:58 | disposition home or self-care (01) ==
LOC: ED 09:08
DX: S41.112A Laceration without foreign body of left upper arm, initial encounter (principal); S51.012A Laceration without foreign body of left elbow, initial encounter; S61.219A Laceration without foreign body of unspecified finger without damage to nail, initial encounter; F03.90 Unspecified dementia, unspecified severity, without behavioral disturbance, psychotic disturbance, mood disturbance, and anxiety; K21.9 Gastro-esophageal reflux disease without esophagitis; W01.0XXA Fall on same level from slipping, tripping and stumbling without subsequent striking against object, initial encounter; Y92.009 Unspecified place in unspecified non-institutional (private) residence as the place of occurrence of the external cause

== ENCOUNTER 2023-04-16 16:20 | Observation (INO) | payer MEDICARE, BC ==
[2023-04-16] VITALS (12 sets, daily range): BP systolic 97–116; BP diastolic 61–73
[~2023-04-16] VITALS: Ht 167.6 cm; Wt 56.0 kg
[2023-04-16 16:46] LABS: BASO% 0.7 % (0-3); EOS% 1.2 % (0-8); HEMATOCRIT 36.4 % (39.0-50.0); HEMOGLOBIN 11.2 g/dl (14.0-18.0); IMMATURE GRANULOCYTES 0.1 % (0.0-5.0); LYMPH% 12.8 % (15-41); MEAN CORPUSCULAR HGB 29.2 pG CALC (26.0-32.0); MEAN CORPUSCULAR HGB CONC 30.8 g/dL CAL (32.0-36.0); MONO% 7.1 % (2-13); NEUT# 6.88 thou/uL (1.82-7.42); NEUT% 78.1 % (42-76); RED BLOOD COUNT 3.83 mill/uL (4.70-6.10); RED CELL DISTRI WIDTH 12.7 % (11.5-15.5)
[2023-04-16 16:54] LABS: ALBUMIN 3.4 g/dL (3.2-5.0); ALKALINE PHOSPHATASE 90 u/l (38-126); BILIRUBIN, TOTAL 0.5 mg/dL (0.2-1.3); BUN 40 mg/dL (8-23); BUN/CREATININE RATIO 40 (12-20 (CALC)); CARBON DIOXIDE 24 mmol/l (22-30); CHLORIDE 108 mmol/l (95-108); GFR FOR AFR.AMER. > 60 ML/MIN (>=60 (CALC)); GFR OTHER RACES > 60 ML/MIN (>=60 (CALC)); SGOT/AST 33 u/l (19-48); SODIUM 137 mmol/l (137-146); TOTAL PROTEIN 6.5 g/dL (6.3-8.2)
[2023-04-16 16:57] LABS: ANION GAP 10 (6-22 (CALC)); POTASSIUM 4.6 mmol/l (3.5-5.1)
[2023-04-17 00:10] VITALS: BP 112/69
[2023-04-17 00:38] LABS: URINE BILIRUBIN - DIPSTICK Negative (NEGATIVE); URINE BLOOD DIPSTICK Negative (NEGATIVE); URINE COLOR Yellow; URINE GLUCOSE - DIPSTICK Negative (NEGATIVE); URINE KETONE Trace mg/dL (NEGATIVE); URINE LEUK ESTERASE Negative (NEGATIVE); URINE NITRITE - DIPSTICK Negative (Negative); URINE PROTEIN - DIPSTICK 30 mg/dL (NEG-TRACE); URINE SPECIFIC GRAVITY >=1.030; URINE UROBILINOGEN - DIPSTICK 0.2 E.U./dL (0.2)
[2023-04-17 00:43] LABS: URINE BACTERIA FEW hpf; URINE EPITHELIAL CELLS FEW EPI/hpf (0-FEW); URINE MUCUS MODERATE hpf (NONE-FEW); URINE RBC 0-2 RBC/hpf (0-5)
[2023-04-17 04:00] VITALS: BP 124/76
[2023-04-17 07:23] VITALS: BP 143/78
[2023-04-17 08:34] LABS: BASO% 0.7 % (0-3); EOS% 4.2 % (0-8); HEMOGLOBIN 10.9 g/dl (14.0-18.0); IMMATURE GRANULOCYTES 0.2 % (0.0-5.0); LYMPH% 20.7 % (15-41); MEAN CORPUSCULAR HGB 30.4 pG CALC (26.0-32.0); MEAN CORPUSCULAR HGB CONC 32.1 g/dL CAL (32.0-36.0); MONO% 7.7 % (2-13); NEUT# 5.58 thou/uL (1.82-7.42); NEUT% 66.5 % (42-76); RED BLOOD COUNT 3.58 mill/uL (4.70-6.10); RED CELL DISTRI WIDTH 12.7 % (11.5-15.5)
[2023-04-17 08:41] LABS: ALBUMIN 2.9 g/dL (3.2-5.0); ALKALINE PHOSPHATASE 91 u/l (38-126); ANION GAP 8 (6-22 (CALC)); BILIRUBIN, TOTAL 0.4 mg/dL (0.2-1.3); BUN 33 mg/dL (8-23); BUN/CREATININE RATIO 35 (12-20 (CALC)); CARBON DIOXIDE 27 mmol/l (22-30); CHLORIDE 107 mmol/l (95-108); CREATININE 0.9 mg/dL (0.7-1.3); GFR FOR AFR.AMER. > 60 ML/MIN (>=60 (CALC)); GFR OTHER RACES > 60 ML/MIN (>=60 (CALC)); SGOT/AST 57 u/l (19-48); SODIUM 137 mmol/l (137-146); TOTAL PROTEIN 5.6 g/dL (6.3-8.2)
[2023-04-17 10:50] VITALS: BP 132/83
== END 2023-04-17 15:50 | disposition home health service (06) ==
LOC: ED 16:20 → ED-I 17:19 → ED 19:32 → MS2 19:33
PROVIDERS: Family Medicine; Student in an Organized Health Care Education/Training Program; ADMIT Student in an Organized Health Care Education/Training Program; ATTEND Student in an Organized Health Care Education/Training Program
DX: R07.9 Chest pain, unspecified (principal); R91.8 Other nonspecific abnormal finding of lung field; G31.83 Neurocognitive disorder with Lewy bodies; F02.C0 Dementia in other diseases classified elsewhere, severe, without behavioral disturbance, psychotic disturbance, mood disturbance, and anxiety; I10 Essential (primary) hypertension; I25.10 Atherosclerotic heart disease of native coronary artery without angina pectoris; E03.9 Hypothyroidism, unspecified; M54.9 Dorsalgia, unspecified; G89.29 Other chronic pain

== ENCOUNTER 2024-04-02 08:46 | Observation (INO) | payer MEDICARE, BC ==
[~2024-04-02] VITALS: Ht 167.6 cm; Wt 43.0 kg
[2024-04-02] VITALS (22 sets, daily range): BP systolic 88–146; BP diastolic 54–103
[2024-04-02 09:14] LABS: BASO% 1.2 % (0-3); EOS% 4.5 % (0-8); HEMATOCRIT 37.7 % (39.0-50.0); HEMOGLOBIN 12.1 g/dl (14.0-18.0); IMMATURE GRANULOCYTES 0.1 % (0.0-5.0); LYMPH% 33.6 % (15-41); MEAN CORPUSCULAR HGB 30.2 pG CALC (26.0-32.0); MEAN CORPUSCULAR HGB CONC 32.1 g/dL CAL (32.0-36.0); MONO% 10.5 % (2-13); NEUT# 3.75 thou/uL (1.82-7.42); NEUT% 50.1 % (42-76); RED BLOOD COUNT 4.01 mill/uL (4.70-6.10); RED CELL DISTRI WIDTH 12.8 % (11.5-15.5)
[2024-04-02 09:28] LABS: ALKALINE PHOSPHATASE 74 u/l (38-126); ANION GAP 7 (6-22 (CALC)); BUN 29 mg/dL (8-23); BUN/CREATININE RATIO 28 (12-20 (CALC)); CARBON DIOXIDE 23 mmol/l (22-30); CHLORIDE 114 mmol/l (95-108); ESTIMATED GFR 72 ML/MIN (>=90 (CALC)); POTASSIUM 3.7 mmol/l (3.5-5.1); SGOT/AST 33 u/l (19-48); SODIUM 141 mmol/l (137-146); TOTAL PROTEIN 6.7 g/dL (6.3-8.2)
[2024-04-02 09:33] LABS: ALBUMIN 3.7 g/dL (3.2-5.0); BILIRUBIN, TOTAL 0.6 mg/dL (0.2-1.3)
[2024-04-02 09:43] LABS: URINE BLOOD DIPSTICK Negative (NEGATIVE); URINE COLOR Yellow; URINE GLUCOSE - DIPSTICK Negative (NEGATIVE); URINE KETONE 15 mg/dL (NEGATIVE); URINE LEUK ESTERASE Negative (NEGATIVE); URINE NITRITE - DIPSTICK Negative (Negative); URINE PROTEIN - DIPSTICK 30 mg/dL (NEG-TRACE); URINE SPECIFIC GRAVITY 1.025
[2024-04-02 09:59] LABS: TSH, 3RD GENERATION 8.15 uIU/mL (0.47 - 4.68)
[2024-04-02 10:01] LABS: URINE RBC 0-2 RBC/hpf (0-5); URINE WBC 0-2 WBC/hpf (0-5)
[2024-04-02 10:02] LABS: URINE HYALINE CAST FEW lpf (NONE-RARE)
[2024-04-02] MEDS ORDERED: MAGNESIUM HYDROXIDE 30 ML UDC PO PRN (14:10)
[2024-04-02] MEDS ORDERED: ACETAMINOPHEN 325 MG/TAB PO PRN (14:10)
[2024-04-02] MEDS ORDERED: SODIUM CHLORIDE 0.9% 1,000 ML IV PRN (14:10)
[2024-04-02] MEDS ORDERED: SEROQUEL50 MG PO (14:34)
[2024-04-02] MEDS ORDERED: TRAZODONE100 MG PO (14:34)
[2024-04-02] MEDS ORDERED: Peg 3350-POTASSIUM CHLORIDE-So 4,000 ML BTL PO ONE (18:25)
[2024-04-02] MEDS ORDERED: ENOXAPARIN SODIUM 40 MG/0.4 ML SYR SC SCH (21:00)
[2024-04-02] MEDS ORDERED: MEMANTINE Hydrochloride 10 MG/TAB PO SCH (21:00)
[2024-04-02] MEDS ORDERED: traZODone HCL 50 MG/TAB PO SCH (21:00)
[2024-04-02] MEDS ORDERED: QUEtiapine FUMERATE 25 MG/TAB PO SCH (21:00)
[2024-04-03] MEDS ORDERED: Peg 3350-POTASSIUM CHLORIDE-So 4,000 ML BTL PO SCH (01:55)
[2024-04-03 04:01] VITALS: BP 96/54
[2024-04-03] MEDS ORDERED: LEVOTHYROXINE SODIUM 50 MCG/TAB PO SCH (06:00)
[2024-04-03 06:04] LABS: BASO% 1.3 % (0-3); EOS% 4.3 % (0-8); HEMATOCRIT 33.5 % (39.0-50.0); IMMATURE GRANULOCYTES 0.2 % (0.0-5.0); MEAN CELL VOLUME 94.6 fL CALC (80.0-100.0); MEAN CORPUSCULAR HGB 31.1 pG CALC (26.0-32.0); MEAN CORPUSCULAR HGB CONC 32.8 g/dL CAL (32.0-36.0); MONO% 9.8 % (2-13); NEUT# 2.69 thou/uL (1.82-7.42); NEUT% 44.4 % (42-76); RED BLOOD COUNT 3.54 mill/uL (4.70-6.10)
[2024-04-03 06:10] LABS: BILIRUBIN, TOTAL 0.5 mg/dL (0.2-1.3); CREATININE 0.8 mg/dL (0.7-1.3); MAGNESIUM 1.9 mg/dL (1.6-2.3); POTASSIUM 3.5 mmol/l (3.5-5.1); TOTAL PROTEIN 5.4 g/dL (6.3-8.2)
[2024-04-03 06:14] LABS: ALBUMIN 2.9 g/dL (3.2-5.0)
[2024-04-03] MEDS ORDERED: DONEPEZIL HCL 5 MG/TAB PO SCH (09:00)
[2024-04-03 10:47] VITALS: BP 108/48
[2024-04-03 14:56] VITALS: BP 107/64
[2024-04-03] MEDS ORDERED: LACTULOSE 20 GM/30 ML UDC PO SCH (15:30)
[2024-04-03 18:50] VITALS: BP 98/80
[2024-04-03 23:30] VITALS: BP 128/62
[2024-04-04 03:53] VITALS: BP 115/61
[2024-04-04 05:30] LABS: BASO% 1.3 % (0-3); EOS% 5.2 % (0-8); HEMATOCRIT 33.7 % (39.0-50.0); IMMATURE GRANULOCYTES 0.2 % (0.0-5.0); LYMPH% 37.2 % (15-41); MEAN CELL VOLUME 94.1 fL CALC (80.0-100.0); MEAN CORPUSCULAR HGB 30.7 pG CALC (26.0-32.0); MEAN CORPUSCULAR HGB CONC 32.6 g/dL CAL (32.0-36.0); MONO% 9.8 % (2-13); NEUT# 2.83 thou/uL (1.82-7.42); NEUT% 46.3 % (42-76); RED BLOOD COUNT 3.58 mill/uL (4.70-6.10)
[2024-04-04 05:49] LABS: ALBUMIN 2.7 g/dL (3.2-5.0); BILIRUBIN, TOTAL 0.4 mg/dL (0.2-1.3); CREATININE 0.8 mg/dL (0.7-1.3); POTASSIUM 3.4 mmol/l (3.5-5.1); TOTAL PROTEIN 5.1 g/dL (6.3-8.2)
[2024-04-04 06:12] VITALS: BP 113/67
[2024-04-04] MEDS ORDERED: POTASSIUM CHLORIDE 20 MEQ/PKT POWDER PO SCH (08:00)
[2024-04-04 10:51] VITALS: BP 124/61
== END 2024-04-04 15:53 | disposition home or self-care (01) ==
LOC: ED 08:46 → ED-I 09:23 → ED 13:56 → MS2 13:57
PROVIDERS: Family Medicine; Nurse Practitioner Family; ADMIT Student in an Organized Health Care Education/Training Program; ATTEND Student in an Organized Health Care Education/Training Program
DX: K56.41 Fecal impaction (principal); K62.89 Other specified diseases of anus and rectum; K22.0 Achalasia of cardia; I10 Essential (primary) hypertension; I25.10 Atherosclerotic heart disease of native coronary artery without angina pectoris; F03.92 Unspecified dementia, unspecified severity, with psychotic disturbance; F05 Delirium due to known physiological condition; K21.9 Gastro-esophageal reflux disease without esophagitis; E03.9 Hypothyroidism, unspecified; R64 Cachexia; Z91.81 History of falling; Z68.1 Body mass index [BMI] 19.9 or less, adult; Z66 Do not resuscitate
CPT/HCPCS: G0378; J1650; Q9967

== ENCOUNTER 2024-04-11 19:59 | Emergency (ER) | payer MEDICARE, BC ==
[~2024-04-11] VITALS: Ht 167.6 cm; Wt 50.0 kg
[2024-04-11] VITALS (13 sets, daily range): BP systolic 89–126; BP diastolic 53–70
[~2024-04-11 19:59] MED LIST changes: +SEROQUEL50 MG PO; +TRAZODONE100 MG PO
[2024-04-11 20:32] LABS: BASO% 0.5 % (0-3); EOS% 1.9 % (0-8); HEMATOCRIT 34.5 % (39.0-50.0); HEMOGLOBIN 10.9 g/dl (14.0-18.0); IMMATURE GRANULOCYTES 0.1 % (0.0-5.0); LYMPH% 16.6 % (15-41); MEAN CELL VOLUME 95.6 fL CALC (80.0-100.0); MEAN CORPUSCULAR HGB 30.2 pG CALC (26.0-32.0); MEAN CORPUSCULAR HGB CONC 31.6 g/dL CAL (32.0-36.0); MONO% 8.6 % (2-13); NEUT# 5.32 thou/uL (1.82-7.42); NEUT% 72.3 % (42-76); RED BLOOD COUNT 3.61 mill/uL (4.70-6.10); RED CELL DISTRI WIDTH 12.9 % (11.5-15.5)
[2024-04-11 20:47] LABS: INTERNATIONAL NORMALIZED RATIO 1.1 RATIO (0.7-1.3)
[2024-04-11 20:48] LABS: ALKALINE PHOSPHATASE 69 u/l (38-126); BILIRUBIN, TOTAL 0.5 mg/dL (0.2-1.3); BUN 23 mg/dL (8-23); BUN/CREATININE RATIO 21 (12-20 (CALC)); CARBON DIOXIDE 27 mmol/l (22-30); CHLORIDE 112 mmol/l (95-108); CREATININE 1.1 mg/dL (0.7-1.3); ESTIMATED GFR 64 ML/MIN (>=90 (CALC)); SGOT/AST 25 u/l (19-48); SODIUM 139 mmol/l (137-146); TOTAL PROTEIN 5.8 g/dL (6.3-8.2)
[2024-04-11 20:51] LABS: PROTHROMBIN TIME 10.4 SECONDS (9.0-12.5)
[2024-04-11 20:56] LABS: ANION GAP 4 (6-22 (CALC)); POTASSIUM 4.1 mmol/l (3.5-5.1)
[2024-04-11 22:41] LABS: URINE BILIRUBIN - DIPSTICK Negative (NEGATIVE); URINE BLOOD DIPSTICK Moderate (NEGATIVE); URINE GLUCOSE - DIPSTICK Negative (NEGATIVE); URINE KETONE Negative (NEGATIVE); URINE LEUK ESTERASE Trace (NEGATIVE); URINE NITRITE - DIPSTICK Negative (Negative); URINE PH 6.5 (4.5-8.0); URINE PROTEIN - DIPSTICK Negative (NEG-TRACE); URINE SPECIFIC GRAVITY 1.015; URINE UROBILINOGEN - DIPSTICK 0.2 E.U./dL (0.2)
[2024-04-11 22:43] LABS: URINE COLOR Yellow
[2024-04-11 22:50] LABS: URINE BACTERIA RARE hpf
[2024-04-11 22:51] LABS: URINE HYALINE CAST FEW lpf (NONE-RARE); URINE MUCUS FEW hpf (NONE-FEW)
[2024-04-12] VITALS: BP 139/80
[2024-04-12 00:16] VITALS: BP 123/84
[2024-04-12 00:31] VITALS: BP 132/73
[2024-04-12 00:45] VITALS: BP 122/81
[2024-04-12 01:15] VITALS: BP 119/75
[2024-04-12 01:31] VITALS: BP 104/70
== END 2024-04-12 01:40 | disposition home or self-care (01) ==
LOC: ED 19:59
PROVIDERS: Emergency Medicine
DX: R53.1 Weakness (principal); R11.10 Vomiting, unspecified; F03.90 Unspecified dementia, unspecified severity, without behavioral disturbance, psychotic disturbance, mood disturbance, and anxiety; K21.9 Gastro-esophageal reflux disease without esophagitis; Z91.81 History of falling
CPT/HCPCS: Q9967